=== PATIENT | female | born 1960 | race Asian ===

== ENCOUNTER 2022-02-27 17:30 | Emergency (ER) | payer BC ==
[~2022-02-27] VITALS: Ht 152.4 cm; Wt 63.5 kg
[2022-02-27 18:35] VITALS: BP_SYST 130
--- NOTE | 2022-02-27 18:39 | NUR ---
Patient triaged and placed in waiting room. VSS and patient appears in no acute distress at this time. Accompanied by STAFF, awaiting available bed, and DR. PRATIBHA LIZ notified of need for MSE.
--- NOTE | 2022-02-27 19:00 | NUR ---
GRAEME Pressley at bedside examining patient.
[2022-02-27 20:12] LABS: ACETONE, SERUM NEGATIVE (NEGATIVE)
[2022-02-27 20:13] LABS: BASOPHILS % (AUTO) 0.5 % (0.0-2.0); EOSINOPHILS # (AUTO) 0.1 K/uL (0.0-0.4); EOSINOPHILS % (AUTO) 0.9 % (0.0-4.0); HEMOGLOBIN 13.7 g/dL (12.0-16.0); LYMPHOCYTES # (AUTO) 2.2 K/uL (1.0-5.5); MEAN CORPUSCULAR HEMOGLOBIN 30 pg (27-31); MEAN CORPUSCULAR HGB CONC 33 % (32-36); MEAN CORPUSCULAR VOLUME 88 fL (79.0-98.0); MONOCYTES # (AUTO) 0.4 K/uL (0.0-1.0); MONOCYTES % (AUTO) 6.9 % (1.7-9.3); NEUTROPHILS # (AUTO) 2.9 K/uL (1.8-7.7); NEUTROPHILS % (AUTO) 52.7 % (40.0-70.0); PLATELET COUNT (AUTO) 244 K/uL (130-430); RED BLOOD CELL COUNT(AUTO) 4.65 MIL/uL (4.2-6.2); WHITE BLOOD COUNT (AUTO) 5.5 K/uL (4.8-10.8)
[2022-02-27 20:15] LABS: ANION GAP 7 (5-15); CALCIUM 9.5 mg/dL (8.4-11.0); CHLORIDE 100 mmol/L (98-107); CREATININE 0.61 mg/dL (0.55-1.30); GLUCOSE 98 mg/dL (70-99); UREA NITROGEN, BLOOD 17 mg/dL (8-21)
[2022-02-27 20:23] LABS: ALANINE AMINOTRANSFERASE 27 U/L (12-78); ALBUMIN 4.4 g/dL (3.4-4.8); ASPARTATE AMINOTRANSFERASE 22 U/L (10-37); TOTAL BILIRUBIN 0.6 mg/dL (0.0-1.0)
[2022-02-27] MEDS ORDERED: ALPR0.5T PO (22:11)
--- NOTE | 2022-02-27 22:31 | NUR ---
Patient given written and verbal discharge instructions and verbalizes understanding. ER MD discussed with patient the results and treatment provided. Patient in stable condition. ID arm band removed. Rx of given. Patient educated on pain management and to follow up with PMD. Opportunity for questions provided and answered. Medication side effect fact sheet provided.
== END 2022-02-27 22:30 | disposition home or self-care (01) ==
LOC: SED 17:30
DX: R42 Dizziness and giddiness (principal); Z79.899 Other long term (current) drug therapy
CPT/HCPCS: 36415; 70450-TC; 71045; 76376; 80053; 82009; 82550; 83605; 84484; 85025; 93005; 99285